=== PATIENT | female | born 1975 ===

== ENCOUNTER → 2018-07-13 | Outpatient (CLI) | payer OTHER ==
[~2018-07-13] MED LIST: OMEG-23 PO; PREN-127 PO
--- NOTE | 2018-07-14 11:15 | RADIOLOGY IMAGING REPORT ---
FACILITY: [facility] [place] PATIENT NAME: LORETTA MCCLENDON : [id number] MR: [id number] V: [id number] EXAM DATE: [id number] ORDERING PHYSICIAN: [id number] ZAPATA TECHNOLOGIST: Rosario Khan PROCEDURE:BILATERAL DIGITAL SCREENING MAMMOGRAM WITH CAD ASSISTED INTERPRETATION & 3D TOMOSYNTHESIS COMPARISON:None, baseline. INDICATIONS:SCREENING FINDINGS: Breast parenchyma is heterogeneously dense. Benign appearing calcifications in the breast more numerously on the Left. There are no mammographic findings concerning for malignancy. DIAGNOSTIC CATEGORY 2--BENIGN FINDING. RECOMMENDATIONS: ROUTINE MAMMOGRAM AND CLINICAL EVALUATION IN 1 YR. IMPRESSION: BIRADS 2: Benign finding. Dictated by: Gurwinder Hoskins on 07/14/2018 at 9:14 Transcribed by: DAVID on 07/14/2018 at 10:51 Approved by: Gurwinder Hoskins on 07/14/2018 at 11:14 [facility]
== END ==
LOC: MAMO 01:04
PROVIDERS: ATTEND Obstetrics & Gynecology
DX: Z12.31 Encounter for screening mammogram for malignant neoplasm of breast (principal); R92.1 Mammographic calcification found on diagnostic imaging of breast
CPT/HCPCS: 77063; 77067